=== PATIENT | female | born 1965 | race Caucasian/White ===

== ENCOUNTER 2019-05-13 08:52 | Day surgery (SDC) | payer BC ==
[~2019-05-13] VITALS: Ht 170.2 cm; Wt 112.9 kg
[2019-05-13] VITALS (10 sets, daily range): BP systolic 119–165; BP diastolic 53–73
[~2019-05-13 08:52] MED LIST: ALLO300T2 PO; ASPI-1130 PO; ASPI1TAB59 PO; ATI0.5T PO; CARV6.253 PO; EZET10TA48 PO; LISI30TA4 PO; METF-517 PO; OMEP20CA11 PO
[2019-05-13] MEDS ORDERED: normal saline 1000ml 1,000 ML IV PRN (09:20)
[2019-05-13] MEDS ORDERED: IBUP-1986 PO (09:29)
[2019-05-13 10:03] LABS: BASOPHILS # (AUTO) 0.1 X10'3 (0-0.2); BASOPHILS % (AUTO) 1.3 % (0-1); EOSINOPHILS # (AUTO) 0.1 X10'3 (0-0.9); EOSINOPHILS % (AUTO) 1.3 % (0-6); HEMOGLOBIN 10.4 g/dl (12.0-16.0); LYMPHOCYTES % (AUTO) 17.7 % (21-51); MEAN CORPUSCULAR HEMOGLOBIN 32.1 PG (27.0-31.0); MEAN CORPUSCULAR HGB CONC 33.5 g/dL (33.0-36.5); MEAN CORPUSCULAR VOLUME 95.8 FL (78-98); MONOCYTES # (AUTO) 0.4 X10'3 (0-0.9); MONOCYTES % (AUTO) 8.2 % (2-12); NEUTROPHILS # (AUTO) 3.9 X10'3 (1.8-7.7); NEUTROPHILS % (AUTO) 71.5 % (42-75); PLATELET COUNT 231 X10'3 (140-440); RED BLOOD COUNT 3.24 X10'6 (4.20-5.60); RED CELL DISTRIBUTION WIDTH 13.4 % (11.5-14.5); WHITE BLOOD COUNT 5.4 X10'3 (4.5-11.0)
[2019-05-13] MEDS ORDERED: fentaNYL/PF 50MCG/1 ML 2ML syringe IV PRN (10:30)
[2019-05-13] MEDS ORDERED: LIDOcaine 1%/PF 5ML 10 MG/ML VIAL SQ ONE (10:30)
[2019-05-13] MEDS ORDERED: midazolam 2 mg/2 ml injection IV PRN (10:30)
[2019-05-13] MEDS ORDERED: LIDOcaine 1%/PF 5ML 10 MG/ML VIAL ONE (10:38)
[2019-05-13] MEDS ORDERED: midazolam 2 mg/2 ml injection ONE (10:43)
[2019-05-13] MEDS ORDERED: fentaNYL/PF 50MCG/1 ML 2ML syringe ONE ×2 (10:44→11:56)
[2019-05-13] MEDS ORDERED: LIDOcaine/PRILOcaine 5gm cream TP ONE (10:54)
[2019-05-13] MEDS ORDERED: gelatin sponge, absorbable (Gelfoam 12-7MM) sponge TP ONE (12:00)
[2019-05-13 16:03] LABS: HEMATOCRIT 30.2 % (35.0-45.0); MEAN CORPUSCULAR HEMOGLOBIN 31.7 PG (27.0-31.0); MEAN CORPUSCULAR HGB CONC 33.2 g/dL (33.0-36.5); MEAN CORPUSCULAR VOLUME 95.2 FL (78-98); MEAN PLATELET VOLUME 10.2 FL (7.4-10.4); PLATELET COUNT 215 X10'3 (140-440); RED BLOOD COUNT 3.17 X10'6 (4.20-5.60); RED CELL DISTRIBUTION WIDTH 13.3 % (11.5-14.5); WHITE BLOOD COUNT 5.1 X10'3 (4.5-11.0)
== END 2019-05-13 16:42 | disposition home or self-care (01) ==
LOC: MERGE 08:52 → SSTAY O 08:52
PROVIDERS: ATTEND Radiology Vascular & Interventional Radiology
DX: K74.0 Hepatic fibrosis (principal); C64.9 Malignant neoplasm of unspecified kidney, except renal pelvis; Z88.0 Allergy status to penicillin; Z79.82 Long term (current) use of aspirin; G95.9 Disease of spinal cord, unspecified; Z79.899 Other long term (current) drug therapy
CPT/HCPCS: 36415; 47000; 76942; 82948; 85025; 85027; 85610; 99152; 99153; J2250; J3010; J7030

== ENCOUNTER 2019-05-20 12:56 | Inpatient (IN) | payer BC ==
[~2019-05-20] VITALS: Ht 172.7 cm; Wt 119.5 kg
[~2019-05-20 12:56] MED LIST changes: -ASPI1TAB59 PO; +IBUP-1986 PO; -OMEP20CA11 PO
[2019-05-20 14:02] LABS: BASOPHILS # (AUTO) 0.1 X10'3 (0-0.2); BASOPHILS % (AUTO) 0.9 % (0-1); EOSINOPHILS # (AUTO) 0.1 X10'3 (0-0.9); EOSINOPHILS % (AUTO) 2.3 % (0-6); HEMATOCRIT 33.1 % (35.0-45.0); HEMOGLOBIN 10.6 g/dl (12.0-16.0); LYMPHOCYTES # (AUTO) 1.5 X10'3 (1.1-4.8); LYMPHOCYTES % (AUTO) 24.2 % (21-51); MEAN PLATELET VOLUME 9.9 FL (7.4-10.4); MONOCYTES # (AUTO) 0.5 X10'3 (0-0.9); MONOCYTES % (AUTO) 7.5 % (2-12); NEUTROPHILS # (AUTO) 4.1 X10'3 (1.8-7.7); NEUTROPHILS % (AUTO) 65.1 % (42-75); PLATELET COUNT 256 X10'3 (140-440); RED BLOOD COUNT 3.41 X10'6 (4.20-5.60); RED CELL DISTRIBUTION WIDTH 13.8 % (11.5-14.5); WHITE BLOOD COUNT 6.3 X10'3 (4.5-11.0)
[2019-05-20 14:12] LABS: ALANINE AMINOTRANSFERASE 32 U/L (12-78); ALBUMIN 3.1 G/DL (3.4-5.0); ALBUMIN/GLOBULIN RATIO 0.7 (1.1-1.5); ALKALINE PHOSPHATASE 150 IU/L (46-116); ANION GAP 9 (8-16); ASPARTATE AMINO TRANSFERASE 34 U/L (10-37); BILIRUBIN,TOTAL 0.6 MG/DL (0.1-1.0); BLOOD UREA NITROGEN 28 MG/DL (7-18); BUN/CREATININE RATIO 17.4 (6.6-38.0); CHLORIDE 107 MMOL/L (99-107); CREATININE 1.61 MG/DL (0.40-0.90); GLUCOSE 113 MG/DL (70-104); MAGNESIUM 1.5 MG/DL (1.5-2.4); PHOSPHORUS 3.4 MG/DL (2.3-4.5); POTASSIUM 4.4 MMOL/L (3.5-5.1); SODIUM 140 MMOL/L (135-145); TOTAL CARBON DIOXIDE 23.9 MMOL/L (24-32); TOTAL PROTEIN 7.6 G/DL (6.4-8.2); eGFR 33 ML/MIN
[2019-05-20 14:19] LABS: CALCIUM 15.1 MG/DL (8.5-10.1)
[2019-05-20 14:22] LABS: PARTIAL THROMBOPLASTIN TIME 25 SECONDS (22-32)
[2019-05-20] MEDS ORDERED: normal saline 1000ML IV soln IVB ONE (14:30)
[2019-05-20] MEDS ORDERED: potassium chloride 10mEq ER tablet PO STA (14:30)
[2019-05-20] MEDS ORDERED: furosemide 10 MG/1 ML 10ml inj IV ONE (14:30)
[2019-05-20] MEDS ORDERED: magnesium hydroxide 30ml (MOM) UD suspension PO PRN (15:05)
[2019-05-20] MEDS ORDERED: ondansetron/PF 4mg/2ml inj IV PRN (15:05)
[2019-05-20] MEDS ORDERED: methylPREDNISolone sod succ 125mg/2ml vial IV ONE (15:05)
[2019-05-20] MEDS ORDERED: acetaminophen 325mg tablet PO PRN (15:05)
[2019-05-20] MEDS ORDERED: mag hydrox/Alum hydrox/simeth 30ml oral suspension PO PRN (15:05)
[2019-05-20] MEDS ORDERED: zoledronic acid/mannitol-water 100 ML IV ONE (15:05)
[2019-05-20] MEDS ORDERED: ASPI-611 PO (15:41)
[2019-05-20] MEDS ORDERED: IBUP-1986 PO (15:43)
[2019-05-20] MEDS ORDERED: LISI10TA4 PO (16:00)
[2019-05-20] MEDS ORDERED: METF-517 PO (16:00)
[2019-05-20] MEDS ORDERED: EZET10TA21 PO (16:10)
[2019-05-20] MEDS ORDERED: CARV6.253 PO (16:10)
[2019-05-20] MEDS ORDERED: OMEP20TA5 PO (16:15)
[2019-05-20] MEDS: normal saline 1000ml 1,000 ML IV SCH ×2 (16:15→21:46)
[2019-05-20 16:21] VITALS: BP 111/57
--- NOTE | 2019-05-20 16:33 | NUR ---
Patient arrived direct admit from ED. Recieved report from AUGUST Vaca/ Pt is stable and no apparent distress noted.
[2019-05-20] MEDS ORDERED: NORMAL SALINE IV ONE (17:00)
[2019-05-20] MEDS ORDERED: PAMIDRONATE IV ONE (17:00)
[2019-05-20] MEDS ORDERED: pamidronate disodium inj 60 MG in normal saline 500ml IV soln 500 ML IV ONE (17:00)
--- NOTE | 2019-05-20 17:00 | NUR ---
CHUCKIE, RX STATES"YOU CAN ADM BOTH BAGS OF AREDIA AT SAME TIME"'
--- NOTE | 2019-05-20 18:36 | NUR ---
Problems reprioritized. Patient report given, questions answered & plan of care reviewed with AUGUST SHOEMAKER.
--- NOTE | 2019-05-20 18:36 | NUR ---
Patient in room PCU 3024B. I have received report from Kalen RN and Keely RN and had the opportunity to ask questions and assume patient care. Patient awake for bedside report. Stable at this time. Will continue to monitor closely.
--- NOTE | 2019-05-20 18:36 | NUR ---
NEW HIRE predictive maintenance specialist: I have reviewed and agree with all interventions, assessments performed and documented by AUGUST GALARZA.
[2019-05-20 19:00] VITALS: BP 154/67
[2019-05-20] MEDS: carvedilol 6.25mg tablet PO SCH (19:26)
[2019-05-20] MEDS: heparin, porcine 5000 units/ml vial SQ SCH (19:26)
[2019-05-20] MEDS: ezetimibe 10mg tablet PO SCH (21:34)
[2019-05-20] MEDS: ibuprofen tablet 400 MG TABLET PO PRN (21:46)
[2019-05-20 23:00] VITALS: BP 132/40
[2019-05-21 01:36] LABS: BASOPHILS % (AUTO) 0.8 % (0-1); EOSINOPHILS % (AUTO) 0.2 % (0-6); HEMATOCRIT 31.3 % (35.0-45.0); HEMOGLOBIN 10.3 g/dl (12.0-16.0); LYMPHOCYTES # (AUTO) 0.7 X10'3 (1.1-4.8); LYMPHOCYTES % (AUTO) 16.2 % (21-51); MEAN CORPUSCULAR HEMOGLOBIN 31.6 PG (27.0-31.0); MEAN CORPUSCULAR HGB CONC 33.1 g/dL (33.0-36.5); MEAN CORPUSCULAR VOLUME 95.7 FL (78-98); MEAN PLATELET VOLUME 10.2 FL (7.4-10.4); MONOCYTES # (AUTO) 0.1 X10'3 (0-0.9); MONOCYTES % (AUTO) 1.6 % (2-12); NEUTROPHILS # (AUTO) 3.3 X10'3 (1.8-7.7); NEUTROPHILS % (AUTO) 81.2 % (42-75); PLATELET COUNT 200 X10'3 (140-440); RED BLOOD COUNT 3.27 X10'6 (4.20-5.60); RED CELL DISTRIBUTION WIDTH 13.3 % (11.5-14.5)
[2019-05-21 01:52] LABS: ALANINE AMINOTRANSFERASE 35 U/L (12-78); ALBUMIN 2.8 G/DL (3.4-5.0); ALBUMIN/GLOBULIN RATIO 0.6 (1.1-1.5); ALKALINE PHOSPHATASE 149 IU/L (46-116); ANION GAP 7 (8-16); ASPARTATE AMINO TRANSFERASE 27 U/L (10-37); BILIRUBIN,TOTAL 0.4 MG/DL (0.1-1.0); BLOOD UREA NITROGEN 31 MG/DL (7-18); BUN/CREATININE RATIO 19.9 (6.6-38.0); CHLORIDE 108 MMOL/L (99-107); CREATININE 1.56 MG/DL (0.40-0.90); GLUCOSE 215 MG/DL (70-104); HEMOGLOBIN A1C 5.5 % (4.5-6.2); POTASSIUM 5.2 MMOL/L (3.5-5.1); SODIUM 138 MMOL/L (135-145); TOTAL CARBON DIOXIDE 23.2 MMOL/L (24-32); TOTAL PROTEIN 7.2 G/DL (6.4-8.2); eGFR 35 ML/MIN
[2019-05-21 01:54] LABS: CALCIUM 14.3 MG/DL (8.5-10.1)
--- NOTE | 2019-05-21 02:32 | NUR ---
PAGER ID: [phone] MESSAGE: Ext. [phone] AUGUST Novoa for patient in 3024B- Calcium critical value of 14.3 trending down from 15.1. Just an update, thanks.
[2019-05-21 03:00] VITALS: BP 115/44
[2019-05-21] MEDS: normal saline 1000ml 1,000 ML IV SCH ×4 (04:23→21:45)
--- NOTE | 2019-05-21 06:37 | NUR ---
Problems reprioritized. Patient report given, questions answered & plan of care reviewed with Kalen RN and AUGUST Riggs.
--- NOTE | 2019-05-21 06:54 | NUR ---
Patient in room PCU 3024. I have received report from AUGUST Novoa and had the opportunity to ask questions and assume patient care. Pt in bed sleeping NAD
[2019-05-21 07:14] VITALS: BP 108/55
--- NOTE | 2019-05-21 07:24 | NUR ---
PAGER ID: [phone] MESSAGE: DR. EMANUEL, [id number]/EMERALD, HAS MET CRITERIA FOR HYPERGLYCEMIC PROTOCOL. NEED ORDERS PLEASE. ISAEL GALARZA, [phone]. TY.
[2019-05-21] MEDS: aspirin 81mg tablet.DR PO SCH (08:04)
[2019-05-21] MEDS: pantoprazole 40mg Tablet.DR PO SCH (08:04)
[2019-05-21] MEDS: carvedilol 6.25mg tablet PO SCH ×2 (08:04→20:00)
[2019-05-21] MEDS: heparin, porcine 5000 units/ml vial SQ SCH ×2 (08:05→20:27)
[2019-05-21] MEDS: ibuprofen tablet 400 MG TABLET PO PRN (08:18)
[2019-05-21] MEDS: lisinopril 10 MG tablet PO SCH (08:20)
[2019-05-21] MEDS ORDERED: insulin Lispro (HumaLOG) vial - multi-dose SQ SCH (08:25)
[2019-05-21] MEDS ORDERED: dextrose 50%-water 50ml dispensing syringe IV PRN ×2 (08:25)
[2019-05-21] MEDS ORDERED: MESSAGE TO PHARMACY PO ONE (08:25)
[2019-05-21] MEDS ORDERED: glucagon, human recombinant 1mg kit SUBCUT PRN (08:25)
[2019-05-21] MEDS ORDERED: dextrose ORAL solution 15 GM/59 ML bottle PO PRN ×2 (08:25)
[2019-05-21 11:00] VITALS: BP 123/50
[2019-05-21 15:00] VITALS: BP 105/48
--- NOTE | 2019-05-21 18:17 | NUR ---
Problems reprioritized. Patient report given, questions answered & plan of care reviewed with AUGUST SHOEMAKER.
--- NOTE | 2019-05-21 18:18 | NUR ---
EQUIPMENT MANAGERmural painter: I have reviewed and agree with all interventions, assessments performed and documented by AUGUST GALARZA.
[2019-05-21 19:00] VITALS: BP 114/38
--- NOTE | 2019-05-21 19:33 | NUR ---
Patient in room PCU 3024b. I have received report from AUGUST Higuera and had the opportunity to ask questions and assume patient care. Patient awake for bedside report. Will continue to monitor closely.
[2019-05-21] MEDS: ezetimibe 10mg tablet PO SCH (20:27)
--- NOTE | 2019-05-21 20:34 | NUR ---
COREG HELD bp 93/47 hr 59
[2019-05-21] MEDS: insulin glargine (Lantus) pen - multi-dose SQ SCH (21:00)
[2019-05-21 23:00] VITALS: BP 102/39
[2019-05-22] VITALS (7 sets, daily range): BP systolic 107–135; BP diastolic 32–69
[2019-05-22] MEDS: normal saline 1000ml 1,000 ML IV SCH ×4 (03:33→21:45)
[2019-05-22] MEDS: morphine 2 MG/ML inj. syringe IV PRN ×3 (05:34→20:36)
--- NOTE | 2019-05-22 06:20 | NUR ---
Patient in room PCU 3024. I have received report from Bright KOCH and had the opportunity to ask questions and assume patient care.
[2019-05-22 06:24] LABS: BASOPHILS # (AUTO) 0.1 X10'3 (0-0.2); BASOPHILS % (AUTO) 0.8 % (0-1); EOSINOPHILS # (AUTO) 0.1 X10'3 (0-0.9); EOSINOPHILS % (AUTO) 1.8 % (0-6); HEMATOCRIT 29.8 % (35.0-45.0); HEMOGLOBIN 9.6 g/dl (12.0-16.0); LYMPHOCYTES # (AUTO) 1.7 X10'3 (1.1-4.8); LYMPHOCYTES % (AUTO) 23.8 % (21-51); MEAN CORPUSCULAR HEMOGLOBIN 31.4 PG (27.0-31.0); MEAN CORPUSCULAR HGB CONC 32.2 g/dL (33.0-36.5); MEAN CORPUSCULAR VOLUME 97.7 FL (78-98); MEAN PLATELET VOLUME 10.8 FL (7.4-10.4); MONOCYTES # (AUTO) 0.6 X10'3 (0-0.9); MONOCYTES % (AUTO) 8.3 % (2-12); NEUTROPHILS # (AUTO) 4.7 X10'3 (1.8-7.7); NEUTROPHILS % (AUTO) 65.3 % (42-75); PLATELET COUNT 193 X10'3 (140-440); RED BLOOD COUNT 3.05 X10'6 (4.20-5.60); RED CELL DISTRIBUTION WIDTH 13.6 % (11.5-14.5); WHITE BLOOD COUNT 7.3 X10'3 (4.5-11.0)
[2019-05-22 06:25] LABS: ALANINE AMINOTRANSFERASE 31 U/L (12-78); ALBUMIN 2.6 G/DL (3.4-5.0); ALBUMIN/GLOBULIN RATIO 0.7 (1.1-1.5); ALKALINE PHOSPHATASE 121 IU/L (46-116); ANION GAP 10 (8-16); ASPARTATE AMINO TRANSFERASE 24 U/L (10-37); BILIRUBIN,TOTAL 0.3 MG/DL (0.1-1.0); BLOOD UREA NITROGEN 36 MG/DL (7-18); BUN/CREATININE RATIO 31.6 (6.6-38.0); CHLORIDE 112 MMOL/L (99-107); CREATININE 1.14 MG/DL (0.40-0.90); GLUCOSE 86 MG/DL (70-104); POTASSIUM 4.2 MMOL/L (3.5-5.1); SODIUM 142 MMOL/L (135-145); TOTAL CARBON DIOXIDE 19.9 MMOL/L (24-32); TOTAL PROTEIN 6.5 G/DL (6.4-8.2); eGFR 50 ML/MIN
[2019-05-22 06:34] LABS: CALCIUM 13.2 MG/DL (8.5-10.1)
--- NOTE | 2019-05-22 06:37 | NUR ---
Call to Dr Reid re: [id number] Herlinda Becker, critical lab-Calcium 13.2 (trending downward), no new orders
--- NOTE | 2019-05-22 06:52 | NUR ---
Problems reprioritized. Patient report given, questions answered & plan of care reviewed with AUGUST Reeves.
[2019-05-22] MEDS: pantoprazole 40mg Tablet.DR PO SCH (07:45)
[2019-05-22] MEDS: aspirin 81mg tablet.DR PO SCH (07:45)
[2019-05-22] MEDS: heparin, porcine 5000 units/ml vial SQ SCH ×2 (07:50→20:38)
--- NOTE | 2019-05-22 07:58 | NUR ---
Page to Dr Padilla re: Room 3024B Herlinda Eugenio BP 111/43 HR 57, per parameters coreg and lisinopril to be held, do you want to give either/both? Please advise Belen [phone] awaiting return call
--- NOTE | 2019-05-22 08:00 | NUR ---
Per Dr Randy thorpe to give lisinopril and coreg with HR 57
[2019-05-22] MEDS: lisinopril 10 MG tablet PO SCH (08:27)
[2019-05-22] MEDS: carvedilol 6.25mg tablet PO SCH ×2 (08:27→20:00)
[2019-05-22 10:13] LABS: LARGE PLATELETS MODERATE; PLATELET ESTIMATE NORMAL
--- NOTE | 2019-05-22 14:30 | NUR ---
RECEIVED REPORT FROM SIMON KOCH AT THIS TIME.
--- NOTE | 2019-05-22 18:00 | NUR ---
Problems reprioritized. Patient report given, questions answered & plan of care reviewed with AUGUST Marshall.
[2019-05-22] MEDS: ezetimibe 10mg tablet PO SCH (20:34)
[2019-05-22] MEDS: insulin glargine (Lantus) pen - multi-dose SQ SCH (21:00)
[2019-05-23] MEDS: morphine 2 MG/ML inj. syringe IV PRN ×4 (01:40→23:24)
[2019-05-23 03:00] VITALS: BP 123/36
[2019-05-23] MEDS: normal saline 1000ml 1,000 ML IV SCH ×3 (05:05→19:41)
[2019-05-23 05:34] LABS: BASOPHILS % (AUTO) 0.7 % (0-1); EOSINOPHILS # (AUTO) 0.1 X10'3 (0-0.9); EOSINOPHILS % (AUTO) 1.8 % (0-6); HEMATOCRIT 28.9 % (35.0-45.0); HEMOGLOBIN 9.3 g/dl (12.0-16.0); LYMPHOCYTES # (AUTO) 1.5 X10'3 (1.1-4.8); LYMPHOCYTES % (AUTO) 23.5 % (21-51); MEAN CORPUSCULAR HEMOGLOBIN 31.5 PG (27.0-31.0); MEAN CORPUSCULAR HGB CONC 32.3 g/dL (33.0-36.5); MEAN CORPUSCULAR VOLUME 97.3 FL (78-98); MEAN PLATELET VOLUME 10.4 FL (7.4-10.4); MONOCYTES # (AUTO) 0.5 X10'3 (0-0.9); MONOCYTES % (AUTO) 8.3 % (2-12); NEUTROPHILS # (AUTO) 4.1 X10'3 (1.8-7.7); NEUTROPHILS % (AUTO) 65.7 % (42-75); PLATELET COUNT 178 X10'3 (140-440); RED BLOOD COUNT 2.97 X10'6 (4.20-5.60); RED CELL DISTRIBUTION WIDTH 13.8 % (11.5-14.5); WHITE BLOOD COUNT 6.2 X10'3 (4.5-11.0)
[2019-05-23 05:55] LABS: ALANINE AMINOTRANSFERASE 27 U/L (12-78); ALBUMIN 2.5 G/DL (3.4-5.0); ALBUMIN/GLOBULIN RATIO 0.7 (1.1-1.5); ALKALINE PHOSPHATASE 113 IU/L (46-116); ANION GAP 9 (8-16); ASPARTATE AMINO TRANSFERASE 25 U/L (10-37); BILIRUBIN,TOTAL 0.4 MG/DL (0.1-1.0); BLOOD UREA NITROGEN 27 MG/DL (7-18); BUN/CREATININE RATIO 26.7 (6.6-38.0); CHLORIDE 115 MMOL/L (99-107); CREATININE 1.01 MG/DL (0.40-0.90); GLUCOSE 95 MG/DL (70-104); POTASSIUM 4.3 MMOL/L (3.5-5.1); SODIUM 143 MMOL/L (135-145); TOTAL CARBON DIOXIDE 19.5 MMOL/L (24-32); TOTAL PROTEIN 6.3 G/DL (6.4-8.2); eGFR 57 ML/MIN
[2019-05-23 06:09] LABS: CALCIUM 12.3 MG/DL (8.5-10.1)
--- NOTE | 2019-05-23 06:20 | NUR ---
Patient in room U 3024. I have received report from AUGUST Marshall and had the opportunity to ask questions and assume patient care. Patient is currently sitting up at the side of the bed resting, no acute distress, no needs at this time.
--- NOTE | 2019-05-23 06:20 | NUR ---
Received critical value of Ca 12.6 from Della in lab. Will inform
--- NOTE | 2019-05-23 06:21 | NUR ---
PAGER ID: [phone] MESSAGE: AUGUST Trevizo, ext [phone], [id number], [place], critical value received, Ca 12.6, down from 13.1 yesterday. Thank you.
[2019-05-23 07:02] VITALS: BP 135/44
[2019-05-23] MEDS: lisinopril 10 MG tablet PO SCH (07:30)
[2019-05-23] MEDS: aspirin 81mg tablet.DR PO SCH (07:30)
[2019-05-23] MEDS: carvedilol 6.25mg tablet PO SCH ×2 (07:30→20:39)
[2019-05-23] MEDS: pantoprazole 40mg Tablet.DR PO SCH (07:30)
[2019-05-23] MEDS: heparin, porcine 5000 units/ml vial SQ SCH ×2 (07:31→20:39)
[2019-05-23 11:33] VITALS: BP 111/40
[2019-05-23 17:01] VITALS: BP 129/46
--- NOTE | 2019-05-23 18:26 | NUR ---
Problems reprioritized. Patient report given, questions answered & plan of care reviewed with AUGUST Wilson. Patient currently resting in bed, family at bedside, no acute distress, patient stable at shift change.
--- NOTE | 2019-05-23 18:35 | NUR ---
Patient in room PCU 3024. I have received report from Joseline KOCH and had the opportunity to ask questions and assume patient care.
[2019-05-23 19:00] VITALS: BP 135/35
[2019-05-23] MEDS: ezetimibe 10mg tablet PO SCH (20:38)
[2019-05-23] MEDS: insulin glargine (Lantus) pen - multi-dose SQ SCH (21:00)
--- NOTE | 2019-05-23 22:53 | NUR ---
Page Sent promotional table spacer PAGER ID: [phone] MESSAGE: Herlinda Becker 3024-B here for hypercalemia, also diagnosed with metastatic renal cell cancer has had a headache for several days, 8/10 pain. has morphine 2mg Q4 and has had no relief. Thanks Steve [phone]
[2019-05-23 23:00] VITALS: BP 132/55
[2019-05-24 02:00] VITALS: BP 135/49
[2019-05-24] MEDS: normal saline 1000ml 1,000 ML IV SCH (02:22)
[2019-05-24] MEDS: morphine 2 MG/ML inj. syringe IV PRN ×2 (03:01→07:11)
[2019-05-24 05:21] LABS: BASOPHILS % (AUTO) 0.7 % (0-1); EOSINOPHILS # (AUTO) 0.1 X10'3 (0-0.9); EOSINOPHILS % (AUTO) 1.5 % (0-6); HEMOGLOBIN 9.7 g/dl (12.0-16.0); LYMPHOCYTES # (AUTO) 1.2 X10'3 (1.1-4.8); LYMPHOCYTES % (AUTO) 20.3 % (21-51); MEAN CORPUSCULAR HEMOGLOBIN 31.4 PG (27.0-31.0); MEAN CORPUSCULAR HGB CONC 32.2 g/dL (33.0-36.5); MEAN CORPUSCULAR VOLUME 97.6 FL (78-98); MEAN PLATELET VOLUME 10.7 FL (7.4-10.4); MONOCYTES # (AUTO) 0.5 X10'3 (0-0.9); MONOCYTES % (AUTO) 8.6 % (2-12); NEUTROPHILS # (AUTO) 3.9 X10'3 (1.8-7.7); NEUTROPHILS % (AUTO) 68.9 % (42-75); PLATELET COUNT 183 X10'3 (140-440); RED BLOOD COUNT 3.07 X10'6 (4.20-5.60); RED CELL DISTRIBUTION WIDTH 14.5 % (11.5-14.5); WHITE BLOOD COUNT 5.7 X10'3 (4.5-11.0)
[2019-05-24 05:35] LABS: ALANINE AMINOTRANSFERASE 29 U/L (12-78); ALBUMIN 2.7 G/DL (3.4-5.0); ALBUMIN/GLOBULIN RATIO 0.7 (1.1-1.5); ALKALINE PHOSPHATASE 122 IU/L (46-116); ANION GAP 10 (8-16); ASPARTATE AMINO TRANSFERASE 23 U/L (10-37); BILIRUBIN,TOTAL 0.4 MG/DL (0.1-1.0); BLOOD UREA NITROGEN 17 MG/DL (7-18); BUN/CREATININE RATIO 17.7 (6.6-38.0); CHLORIDE 114 MMOL/L (99-107); CREATININE 0.96 MG/DL (0.40-0.90); GLUCOSE 120 MG/DL (70-104); POTASSIUM 4.2 MMOL/L (3.5-5.1); SODIUM 143 MMOL/L (135-145); TOTAL CARBON DIOXIDE 19.5 MMOL/L (24-32); TOTAL PROTEIN 6.7 G/DL (6.4-8.2); eGFR 61 ML/MIN
[2019-05-24 05:52] LABS: CALCIUM 12.3 MG/DL (8.5-10.1)
--- NOTE | 2019-05-24 05:56 | NUR ---
Page Sent promotional table spacer PAGER ID: [phone] MESSAGE: Herlinda Becker 3024-B critical calcium of 12.3, same as yesterday. Steve [phone]
--- NOTE | 2019-05-24 06:09 | NUR ---
Problems reprioritized. Patient report given, questions answered & plan of care reviewed with Shey KOCH.
--- NOTE | 2019-05-24 06:14 | NUR ---
Patient in room U 3024B. I have received report from Steve KOCH and had the opportunity to ask questions and assume patient care.
[2019-05-24 06:30] VITALS: BP 126/47
[2019-05-24] MEDS: heparin, porcine 5000 units/ml vial SQ SCH (07:10)
[2019-05-24] MEDS: aspirin 81mg tablet.DR PO SCH (07:10)
[2019-05-24] MEDS: carvedilol 6.25mg tablet PO SCH (07:10)
[2019-05-24] MEDS: pantoprazole 40mg Tablet.DR PO SCH (07:10)
[2019-05-24 07:11] VITALS: BP_SYST 126
[2019-05-24] MEDS: lisinopril 10 MG tablet PO SCH (07:11)
[2019-05-24 07:27] LABS: LARGE PLATELETS FEW; PLATELET ESTIMATE NORMAL
--- NOTE | 2019-05-24 09:11 | NUR ---
Pt discharged at this time in stable condition, IV removed and catheter intact. Tele box removed. Pt belongings with patient. Pt escorted to private vehicle by PCT and . Pt off floor, care relinquished. Addendum: 05/24/19 at 0934 by Shey Aguilar RN Patients A1C is 5.5, patient did not require further outpatient referrals. Diabetes is well controlled by patient at home. Patient also has appt scheduled with Oncologist for May 29.
== END 2019-05-24 09:15 | disposition home or self-care (01) | DRG 686 ==
LOC: ER 12:57 → PCU 3S 16:14 → MERGE 16:14 → CMPBEDREQ 20:26
PROVIDERS: ADMIT Family Medicine; ATTEND Family Medicine
DX: C64.9 Malignant neoplasm of unspecified kidney, except renal pelvis (principal); G93.41 Metabolic encephalopathy; C78.7 Secondary malignant neoplasm of liver and intrahepatic bile duct; N17.9 Acute kidney failure, unspecified; C79.51 Secondary malignant neoplasm of bone; E83.52 Hypercalcemia; E78.5 Hyperlipidemia, unspecified; N18.9 Chronic kidney disease, unspecified; I12.9 Hypertensive chronic kidney disease with stage 1 through stage 4 chronic kidney disease, or unspecified chronic kidney disease; E11.22 Type 2 diabetes mellitus with diabetic chronic kidney disease; Z88.0 Allergy status to penicillin; Z85.528 Personal history of other malignant neoplasm of kidney
CPT/HCPCS: 36415; 71045; 80053; 82948; 83036; 83735; 84100; 84484; 85025; 85610; 85730; 87081; 93005; 96374; 96375; 99285; G0378; J1644; J1815; J1940; J2270; J2430; J2930; J7030; J7040; J7050